=== PATIENT | male | born 1985 | race Caucasian/White ===

== ENCOUNTER 2020-01-17 11:53 | Emergency (ER) | payer OTHER, BC, SELFPAY ==
--- NOTE | ~2020-01-17 | XR_ITS ---
EXAMINATION: XR knee RT min 4V DATE: 01/17/2020 12:37 INDICATION: Right knee pain. TECHNIQUE: 4 views of right knee were obtained. COMPARISON: None. FINDINGS: Bone alignment is normal. No fracture. There is mild tricompartmental osteoarthritis charac terized by tiny marginal osteophytes. There is a small knee joint effusion. IMPRESSION: 1. Mild right knee osteoarthritis. 2. Small right knee joint effusion. Reviewed, dictated and finalized at location B.
[2020-01-17 12:01] VITALS: BP 129/89; PULSE 73; RESP 18; TEMP 36.8; O2SAT 99
[2020-01-17 12:06] VITALS: BP 129/89; PULSE 73; RESP 18; TEMP 36.8; O2SAT 99
--- NOTE | 2020-01-17 12:22 | ED.LOWEXIN ---
HPI - Extremity Injury (Lower) General Chief Complaint: Extremity Injury, Lower <Jelly Navarro PA-C - Last Filed: 01/17/20 13:20> Stated Complaint: knee injury <DAVID Chan Last Filed: 01/17/20 13:20> Time Seen by Provider: 01/17/20 12:16 <DAVID Chan Last Filed: 01/17/20 13:20> Source: patient <DAVID Chan Last Filed: 01/17/20 13:20> Mode of arrival: ambulatory <DAVID Chan Last Filed: 01/17/20 13:20> Limitations: no limitations <DAVID Chan Last Filed: 01/17/20 13:20> History of Present Illness HPI Narrative: This is a 34-year-old male that presents to the emergency department for right knee injury sustained this morning. Reports he was stepping out of his truck and twisted the knee. Reports he felt a pop in the knee. Reports a history of ACL injury to the other knee. Reports this felt similar. Denies decreased range of motion or numbness. <DAVID Chan Last Filed: 01/17/20 13:20> Related Data Home Medications: Home Medications Medication Instructions Recorded Confirmed No Home Medications 01/17/20 <Jelly Navarro PA-C - Last Filed: 01/17/20 13:20> Allergies/Adverse Reactions: Allergies Allergy/AdvReac Type Severity Reaction Status Date / Time No Known Allergies Allergy Verified 01/17/20 12:06 <DAVID Chan Last Filed: 01/17/20 13:20> Review of Systems Review of Systems: Narrative: CONSTITUTIONAL: Denies fever SKIN: Denies rash MUSCULOSKELETAL: Reports joint pain, and myalgia. NEUROLOGIC: Denies numbness <DAVID Chan Last Filed: 01/17/20 13:20> All systems reviewed & are unremarkable except as noted in HPI and below <DAVID Chan Last Filed: 01/17/20 13:20> [facility] Past Medical History Medical History: Medical History (Updated 01/17/20 @ 13:20 by Jelly Navarro PA-C) No active medical problems <Jelly Navarro PA-C - Last Filed: 01/17/20 13:20> Surgical History Surgical History: Surgical History (Updated 01/17/20 @ 12:23 by Jelly Navarro PA-C) History of repair of ACL <Jelly Navarro PA-C - Last Filed: 01/17/20 13:20> Family History Family History: Family History (Updated 09/21/15 @ 09:17 by DOCTOR UNKNOWN) Other Diabetes mellitus Family history of arthritis Family history of malignant neoplasm <Jelly Navarro PA-C - Last Filed: 01/17/20 13:20> Social History Social History: Social History Smoking status: Never smoker Alcohol intake: current Gender identity (if verbalized by the patient): Male Sexual Orientation (if Verbalized by the Patient): Straight or Heterosexual <Jelly Navarro PA-C - Last Filed: 01/17/20 13:20> Exam Narrative: Exam Narrative: GENERAL: Well-appearing, well-nourished, and in no acute distress. HEAD: Normocephalic, atraumatic. EYES: EOMI. EXTREMITIES: Normal range of motion. No edema or obvious deformity. Normal DP pulses. Normal sensation SKIN: Warm, dry, no rash. NEURO: No focal deficits. Alert and oriented x3. PSYCH: Normal mood and affect <Jelly Navarro PA-C - Last Filed: 01/17/20 13:20> Course Vital Signs Vital signs: Vital Signs Temperature 36.8 C 01/17/20 12:01 Pulse Rate 73 01/17/20 12:01 Respiratory Rate 18 01/17/20 12:01 Blood Pressure 129/89 01/17/20 12:01 Pulse Oximetry 99 01/17/20 12:01 Temperature 36.8 C 01/17/20 12:06 Pulse Rate 73 01/17/20 12:06 Respiratory Rate 18 01/17/20 12:06 Blood Pressure 129/89 01/17/20 12:06 Pulse Oximetry 99 01/17/20 12:06 <Jelly Navarro PA-C - Last Filed: 01/17/20 13:20> Vital Signs Temperature 36.8 C 01/17/20 12:01 Pulse Rate 73 01/17/20 12:01 Respiratory Rate 18 01/17/20 12:01 Blood Pressure 129/89 01/17/20 12:01 Pulse Oximetry 99 01/17/20 12:01 Temperature 36.8 C 01/17/20 12:06 Pulse Rate 73
[2020-01-17 14:02] VITALS: BP 117/81; PULSE 82; RESP 20; TEMP 36.6; O2SAT 98
== END 2020-01-17 14:04 | disposition home or self-care (01) ==
PROVIDERS: Emergency Provider Emergency Medicine
DX: S83.91XA Sprain of unspecified site of right knee, initial encounter (principal); X50.9XXA Other and unspecified overexertion or strenuous movements or postures, initial encounter
CPT/HCPCS: 73564; 99283; A9270